=== PATIENT | male | born 1965 ===

== ENCOUNTER 2023-03-29 05:00 | Day surgery (SDC) | payer OTHER ==
[2023-03-29] MEDS ORDERED: TRAMADOL HCL50 MG PO (09:52)
== END 2023-03-29 13:05 | disposition home or self-care (01) ==
LOC: CIR.AMB 05:00
PROVIDERS: ATTEND Surgery
DX: N52.01 Erectile dysfunction due to arterial insufficiency (principal); Z20.822 Contact with and (suspected) exposure to COVID-19; Z88.0 Allergy status to penicillin
CPT/HCPCS: 54405; C1813